=== PATIENT | female | born 1990 | race American Indian/Alaskan Native ===

== ENCOUNTER 2016-07-22 02:15 | Outpatient (CLI) | payer OTHER ==
[2016-07-22 02:33] VITALS: BP 117/69
== END 2016-07-22 03:17 | disposition home or self-care (01) ==
LOC: TRG 02:15
PROVIDERS: ATTEND Obstetrics & Gynecology
DX: O47.03 False labor before 37 completed weeks of gestation, third trimester (principal); Z3A.36 36 weeks gestation of pregnancy
CPT/HCPCS: 59025